=== PATIENT | female | born 1965 | race Caucasian/White ===

== ENCOUNTER 2023-06-27 07:11 | Observation (INO) ==
--- NOTE | 2023-06-02 10:48 | PAT Medication Instructions ---
Medication Instructions Date of Service June 02, 2023 Home Medications Medication Instructions Recorded famotidine 40 mg tablet (Pepcid) 40 mg PO BID #60 tabs 06/06/22 tirzepatide 15 mg/0.5 mL 15 mg (0.5 mL) subcut Q7D #2 mL 05/30/23 subcutaneous pen injector (Mounjaro) albuterol sulfate 90 mcg/actuation aerosol inhaler (Ventolin HFA) 2 puff inhalation QID PRN Shortness Of Breath azelaic acid 15 % topical gel 1 applic topical HS PRN Rash cholecalciferol (vitamin D3) 125 mcg (5,000 unit) tablet (Vitamin D3) 5,000 unit PO BID citalopram 40 mg tablet 40 mg PO HS doxycycline hyclate 20 mg tablet 20 mg PO BID hydrochlorothiazide 25 mg tablet 25 mg PO QAM levothyroxine 50 mcg tablet 50 mcg PO QAM lisinopril 10 mg tablet 10 mg PO QAM prednisone 10 mg tablets in a dose pack 10 mg PO UD PRN copd rescue kit polyethylene glycol 3350 17 gram/dose oral powder (Miralax) 17 g PO DAILY PRN Constipation psyllium 1 packet PO DAILY PRN Constipation famotidine 40 mg tablet (Pepcid) 40 mg PO BID montelukast 10 mg tablet 10 mg PO HS tirzepatide 15 mg/0.5 mL subcutaneous pen injector (Mounjaro) 15 mg (0.5 mL) subcut Q7D Continue as directed doxycycline hyclate 20 mg tablet 20 mg PO BID prednisone 10 mg tablets in a dose pack 10 mg PO UD PRN copd rescue kit (if needed) STOP taking 7 days before surgery tirzepatide 15 mg/0.5 mL subcutaneous pen injector (Mounjaro) 15 mg (0.5 mL) subcut Q7D STOP taking 24 hours before surgery azelaic acid 15 % topical gel 1 applic topical HS PRN Rash DO NOT take the morning of surgery cholecalciferol (vitamin D3) 125 mcg (5,000 unit) tablet (Vitamin D3) 5,000 unit PO BID hydrochlorothiazide 25 mg tablet 25 mg PO QAM lisinopril 10 mg tablet 10 mg PO QAM polyethylene glycol 3350 17 gram/dose oral powder (Miralax) 17 g PO DAILY PRN Constipation psyllium 1 packet PO DAILY PRN Constipation Take morning of surgery With a small sip of water, OTHERWISE NOTHING TO EAT OR DRINK AFTER MIDNIGHT: albuterol sulfate 90 mcg/actuation aerosol inhaler (Ventolin HFA) 2 puff inhalation QID PRN Shortness Of Breath (use if needed; please bring with you to hospital day of surgery if possible) levothyroxine 50 mcg tablet 50 mcg PO QAM famotidine 40 mg tablet (Pepcid) 40 mg PO BID Take evening before surgery albuterol sulfate 90 mcg/actuation aerosol inhaler (Ventolin HFA) 2 puff inhalation QID PRN Shortness Of Breath (if needed) cholecalciferol (vitamin D3) 125 mcg (5,000 unit) tablet (Vitamin D3) 5,000 unit PO BID citalopram 40 mg tablet 40 mg PO HS polyethylene glycol 3350 17 gram/dose oral powder (Miralax) 17 g PO DAILY PRN Constipation (if needed) psyllium 1 packet PO DAILY PRN Constipation (if needed) famotidine 40 mg tablet (Pepcid) 40 mg PO BID montelukast 10 mg tablet 10 mg PO HS Other Notes If you have any questions please call us at [phone] or [phone] or [phone] or [phone]
--- NOTE | 2023-06-03 15:47 | Anesthesiology Consultation ---
Date of Service June 03, 2023 Assessment & Plan (1) Encounter for pre-operative examination: Plan - check BSG am DOS. - PONV: patient has received scopolamine patch in past; to final discussion with anesthesiologist am DOS. Patient expressed comfort/agreement with this plan, de nied additional questions or concerns. - Mounjaro instructions: Patient takes on (). Patient informed at PAT visit to stop 7 days prior to surgery- voiced understanding. Instructed last dose will be: (06/19/23). Patient advised to check with prescriber to see if alternative diabetic management changes recommended while holding Mounjaro and on prescriber's recommendations for resuming medication. She was advised if alternative management changes are advised, patient to call back to PAT to update chart and discuss if any further preop medication instructions needed. She verbalized understanding and agreement, denied questions or concerns. - Outpatient joint assessment: Patient is currently scheduled for inpatient pathway. If re-evaluated and patient/surgeon requests outpatient pathway, patient is acceptable candidate for outpatient joint program from anesthesia standpoint pending surgeon's office assessment of pt motivation/support/completion of same day joint program preop requirements. Chart Review Chart Review: Acceptable Risk for Surgery and Patient seen in Pre Admission Testing Teaching & Discussion Pre-Anesthesia Teaching/Discussion Notes: Instructed NPO after midnight before surgery, except medications with 15 cc of water. Medication instructions provided according to the PAT guidelines. History Surgery Operation Date: 06/27/23 08:50 Proposed Procedures p Left Total Knee Arthroplasty - Kirit Arteaga MD Height/Weight Height: 5 ft 6 in Weight: 115.5 kg Allergies Allergy/AdvReac Type Severity Reaction Status Date / Time tetanus toxoid, adsorbed Allergy Severe MEMORY Verified 05/29/23 16:34 LOSS/"BLACKED OUT" metformin Allergy Intermediate diaphoresis Verified 05/29/23 16:34 and muscle cramps tramadol Allergy Intermediate VOMITING Verified 05/29/23 16:34 AND ITCHING Medications Home Medications Medication Instructions Recorded Confirmed Last Taken albuterol sulfate 90 mcg/actuation 2 puff inhalation QID PRN 11/01/19 05/29/23 Unknown aerosol inhaler (Ventolin HFA) Shortness Of Breath azelaic acid 15 % topical gel 1 applic topical HS PRN Rash 11/01/19 05/29/23 Unknown cholecalciferol (vitamin D3) 125 5,000 unit PO BID 11/01/19 05/29/23 11/08/19 mcg (5,000 unit) tablet (Vitamin D3) citalopram 40 mg tablet 40 mg PO HS 11/01/19 05/29/23 11/08/19 doxycycline hyclate 20 mg tablet 20 mg PO BID 11/01/19 05/29/23 11/08/19 hydrochlorothiazide 25 mg tablet 25 mg PO QAM 11/01/19 05/29/23 11/01/19 levothyroxine 50 mcg tablet 50 mcg PO QAM 11/01/19 05/29/23 11/08/19 lisinopril 10 mg tablet 10 mg PO QAM 11/01/19 05/29/23 11/09/19 06:30 prednisone 10 mg tablets in a dose 10 mg PO UD PRN copd rescue kit 11/01/19 05/29/23 Unknown pack blood sugar diagnostic (OneTouch 11/07/21 03/03/23 Unknown Verio test strips) lancets (AltraTechTouch UltraSoft 11/07/21 03/03/23 Unknown Lancets) polyethylene glycol 3350 17 17 g PO DAILY PRN Constipation 11/07/21 05/29/23 Unknown gram/dose oral powder (Miralax) psyllium 1 packet PO DAILY PRN Constipation 11/07/21 05/29/23 Unknown famotidine 40 mg tablet (Pepcid) 40 mg PO BID #60 tabs 06/06/22 05/29/23 Unknown montelukast 10 mg tablet 10 mg PO HS 06/06/22 05/29/23 Unknown tirzepatide 15 mg/0.5 mL 15 mg (0.5 mL) subcut Q7D #2 mL 05/30/23 Unknown subcutaneous pen injector (Dannieunambika) Past Medical History Medical History (Updated 06/03/23 @ 15:51 by Juanita Olea PA-C) Anxiety Chronic obstructive pulmonary disease inhaler prn; controlled and stable per pt, last rescue inhaler use several months ago Colon polyp, hyperplastic Degenerative disc disease Depression DM type 2 (diabetes mellitus, type 2) NIDDM Fatty infiltration of liver severe on CT dated 10/12/2020 GERD (gastroesophageal reflux disease) controlled, stable per pt Hypertension controlled, stable per pt Hypothyroidism Morbid obesity with BMI of 50.0-59.9, adult Rosacea Sleep apnea cpap-compliant Patient denies h/o stroke, seizures, heart attack, heart failure, blood clots/DVTs or blood transfusions. Exercise / Class Metabolic Activity II 4-5 Yardwork/Stairs/Walk up hill (denies chest discomfort or shortness of breath with 1 FOS) Past Family History Family History Mother Diabetes Hypertension Heart disorder Eye problems Obesity Father Arthritis Hypertension Cirrhosis Brother Myocardial infarction Hypertension Obesity Grandmother (Paternal) Arthritis Breast cancer Grandmother (Maternal) Stroke Other No family history of adverse response to anesthesia Past Surgical History Surgical History History of appendectomy History of arthroscopy of left knee History of arthroscopy of right knee History of bladder suspension procedure History of colonoscopy with polypectomy History of dilatation and curettage History of surgical removal of ganglion cyst left wrist History of tooth extraction History of total right knee replacement (TKR) History of wisdom tooth extraction Past Anesthesia History No Hx of Anesthesia Complications and No Family Hx of Anesthesia Complications History of PONV No Hx of Motion Sickness and History of PONV (has received scop patch in past; denies h/o adverse effects from patch) Social History Smoking Status: Former smoker Do You Dip or Chew Tobacco: No Smoking End Date: 2014 Hx Alcohol Use: Yes Alcohol type: wine and hard liquor alcohol intake frequency: holidays/special occasions only Hx Substance Use: No substance use type: does not use Review of Systems Patient denies chest pain, shortness of breath, dyspnea on exertion, fever, chills, cough, wheezing, or palpitations. Physical Exam Vital Signs Vitals BP 118/68 P 86 TEMP 97.6 SP02 98% on RA RESP 18 Physical Patient resting comfortably in chair in no acute distress, alert and oriented, responding appropriately throughout visit Full cervical extension range of motion without pain TMD3. finger breadths Mallampati Score 2 Dentition: broken left upper back tooth, denies chipped or loose teeth, caps/crowns, implants or bridges Lungs: normal respiratory effort. Good air movement, clear throughout to auscultation, no adventitious breath sounds Cardiac: regular rate and rhythm, no murmurs noted Carotid arteries: negative bruit bilat Lab Results Anesthesia Preop Results Results Anesthesia Widget: WBC 5.51 K/ul (4.8-10.8) 06/03/23 Hgb 14.0 g/dl (12.0-16.0) 06/03/23 Hct 40.5 % (37.0-47.0) 06/03/23 Plt 141 K/uL (130-400) 06/03/23 Na 138 mmol/L (136-145) 06/03/23 K 3.7 mmol/L (3.5-5.1) 06/03/23 Cl 101 mmol/L (98-107) 06/03/23 CO2 32 mmol/L (21-32) 06/03/23 BUN 13 mg/dl (6-23) 06/03/23 Creat 0.84 mg/dl (0.6-1.2) 06/03/23 Glucose Level 97 mg/dl (70-99(Fasting)) 06/03/23 PT 11.4 Seconds (9.0-12.0) 06/03/23 PTT 28.8 Seconds (21.0-31.0) 06/03/23 INR 1.0 (0.9-1.1) 06/03/23 HA1c 5.1 % (4.5-5.6) 06/03/23 Blood Type B Positive 06/03/23 Antibody Screen NEGATIVE 06/03/23 Testing Electrocardiogram Date: 06/28/22 NSR, rate 70 bpm Chest X-Ray Date: 06/28/22 No acute cardiopulmonary findings.
--- NOTE | 2023-06-20 13:57 | History & Physical Report ---
Date of Service June 20, 2023 Assessment & Plan (1) Left knee DJD: 58-year-old female status post right knee replacement with a left knee tricompartment DJD. She has failed conservative measures. She like to have her knee fixed. Unfortunately her right knee is not doing great. Plan we discussed treatment. Proceed with knee knee replacement surgery. The risks Mente this procedure plan the patient clued but not limited to DVT PE infection neurological injury vascular bleeding palm pain limb range of motion this is fairly with symptoms incomplete relief of symptoms etc. Patient understands and desires to proceed. Informed consent is obtained. I did tell her I cannot guarantee her that she will do better than her other knee but hopefully so. That she certainly arthritis enough to warrant the surgery. As far as discharge plan she is can be discharged home. Her can assist in her care. She is a registered nurse as well. (2) Painful total knee replacement, right: History of Present Illness Chief Complaint: . Left knee pain and discomfort. Primary Care Provider: KIMBERLEY Valerio . Patient is a 58-year-old female referred by Dr. Apoadca for surgical treatment of her left knee. She got a long history of knee problems and had a right knee replacement by Dr. Troncoso in 2016. Never felt quite right. She continues to be bothered by the left knee pain discomfort. She does have a history of knee arthroscopy in 2014 on this knee. The past several years she has increased pain discomfort in her knee. She been through extensive conservative treatment which has become less helpful. She describes global pain. The more she is up and out the more it hurts. She like to have her knee fixed. Allergies Allergy/AdvReac Type Severity Reaction Status Date / Time tetanus toxoid, adsorbed Allergy Severe MEMORY Verified 05/29/23 16:34 LOSS/"BLACKED OUT" metformin Allergy Intermediate diaphoresis Verified 05/29/23 16:34 and muscle cramps tramadol Allergy Intermediate VOMITING Verified 05/29/23 16:34 AND ITCHING Home Medications Medication Instructions Recorded Confirmed Type albuterol sulfate 90 mcg/actuation 2 puff inhalation QID PRN 11/01/19 05/29/23 History aerosol inhaler (Ventolin HFA) Shortness Of Breath azelaic acid 15 % topical gel 1 applic topical HS PRN Rash 11/01/19 05/29/23 History cholecalciferol (vitamin D3) 125 5,000 unit PO BID 11/01/19 05/29/23 History mcg (5,000 unit) tablet (Vitamin D3) citalopram 40 mg tablet 40 mg PO HS 11/01/19 05/29/23 History doxycycline hyclate 20 mg tablet 20 mg PO BID 11/01/19 05/29/23 History hydrochlorothiazide 25 mg tablet 25 mg PO QAM 11/01/19 05/29/23 History levothyroxine 50 mcg tablet 50 mcg PO QAM 11/01/19 05/29/23 History lisinopril 10 mg tablet 10 mg PO QAM 11/01/19 05/29/23 History prednisone 10 mg tablets in a dose 10 mg PO UD PRN copd rescue kit 11/01/19 05/29/23 History pack blood sugar diagnostic (OneTouch 11/07/21 03/03/23 History Verio test strips) lancets ([employer] UltraSoft 11/07/21 03/03/23 History Lancets) polyethylene glycol 3350 17 17 g PO DAILY PRN Constipation 11/07/21 05/29/23 History gram/dose oral powder (Miralax) psyllium 1 packet PO DAILY PRN Constipation 11/07/21 05/29/23 History famotidine 40 mg tablet (Pepcid) 40 mg PO BID #60 tabs 06/06/22 05/29/23 Rx montelukast 10 mg tablet 10 mg PO HS 06/06/22 05/29/23 History tirzepatide 15 mg/0.5 mL 15 mg (0.5 mL) subcut Q7D #2 mL 05/30/23 Rx subcutaneous pen injector (Mounjaro) Past Med/Surg History Medical History Anxiety Chronic obstructive pulmonary disease inhaler prn; controlled and stable per pt, last rescue inhaler use several months ago Colon polyp, hyperplastic Degenerative disc disease Depression DM type 2 (diabetes mellitus, type 2) NIDDM Fatty infiltration of liver severe on CT dated 10/12/2020 GERD (gastroesophageal reflux disease) controlled, stable per pt Hypertension controlled, stable per pt Hypothyroidism Morbid obesity with BMI of 50.0-59.9, adult Rosacea Sleep apnea cpap-compliant Surgical History History of appendectomy History of arthroscopy of left knee History of arthroscopy of right knee History of bladder suspension procedure History of colonoscopy with polypectomy History of dilatation and curettage History of surgical removal of ganglion cyst left wrist History of tooth extraction History of total right knee replacement (TKR) History of wisdom tooth extraction Family History Mother Diabetes Hypertension Heart disorder Eye problems Obesity Father Arthritis Hypertension Cirrhosis Brother Myocardial infarction Hypertension Obesity Grandmother (Paternal) Arthritis Breast cancer Grandmother (Maternal) Stroke Other No family history of adverse response to anesthesia Social History Smoking Status: Former smoker packs per day: 1; Second Hand Exposure: No; Do You Dip or Chew Tobacco: No; Hx Alcohol Use: Yes Alcohol type: wine and hard liquor Alcohol Intake Frequency: Monthly or Less Hx Substance Use: No Preferred Language: Vietnamese Communication Ability: Effective Visual Impairment: Limited Hearing Ability: Normal Loom Technician Required: No Beliefs That Will Affect Care: None marital status: Current Living Situation: Spouse current occupational status: employed How many Children do You have: 0 Feels Safe at Home: Yes Childhood Exposure to Second-Hand Smoke: No Diet: regular caffeine: Yes during the past year weight has: decreased > 10 lbs Dental Care, Regularly: No Physical Activity Frequency: 5-6 Times per Week Seatbelt Use: always Sunscreen Use: Yes Assistive Devices: CPAP Review of Systems All systems reviewed & are unremarkable except as noted in HPI & below. Physical Exam . Physical examination reveals a pleasant middle-age female but looks in pretty good health. Examination of the left knee reveals a moderate soft tissue envelope is got varus alignment to her knee. She got about 10 degree flexion contracture and bends about him 5 degrees. No pain with hip motion. Examination of the right knee reveals a well-healed incision. No swelling. Range of motion 0-1 20. Neck trachea midline, no thyromegaly Respiratory normal respiratory effort, lungs clear to auscultation Cardiovascular RRR, no murmur, no edema Gastrointestinal (Abdomen) normal bowel sounds, soft, nontender, no hepatosplenomegaly Results & Data Results & Data Laboratory Results . Diagnostic Findings . X-rays of the left knee were reviewed. Shows advanced left knee tricompartment DJD. She got complete loss of medial joint space. Got osteophytes in all 3 compartments. A little bit of tibiofemoral subluxation. PG Care Time/CCT Total # of Minutes Spent Total Time Spent with Patient: Total time spent is greater than 50% in coordination of care (as documented) at patient's floor/unit and/or counseling patient: Coding Level of Care Code None Diagnoses Left knee DJD M17.12 Painful total knee replacement, right T84.84XA; Z96.651
[~2023-06-27 07:11] MED LIST: ACETAMINOPHEN 500 MG TAB PO SCH; BUPIVACAINE 0.5 % 5 MG/1 ML PF 10ML VIAL ONE; BUPIVACAINE LIPOSOME/PF 266 MG, BUPIVACAINE/EPINEPHRINE 50 ML, SODIUM CHLORIDE 0.9% PF ... INFIL SCH; CeleBREX 200 MG CAP PO SCH; EPINEPHrine INJ 1 MG/ML AMP ONE; FAMOTIDINE 20 MG TAB PO SCH; LR 60ML/HR IV SCH; METOCLOPRAMIDE HCL 10 MG TABLET PO SCH; ROPIVACAINE 0.5% 5 MG/ML 30 ML VIAL ONE; Scopolamine 1 MG TDSY TD SCH; TRANEXAMIC ACID 1,000 MG **IV Intra-op IV SCH; ceFAZolin 2000MG 2,000 MG/15 ML SYR IV SCH; dexAMETHasone**PF** 10 MG/ML VIAL IV SCH
[2023-06-27] MEDS ORDERED: PROPOFOL IV EMULSION 10 MG/ML 20 ML VIAL IV ONE ×3 (07:30→10:18)
[2023-06-27] MEDS ORDERED: ONDANSETRON INJ 2 MG/ML 2 ML VIAL ONE (07:30)
[2023-06-27] MEDS ORDERED: MIDAZOLAM HCL 1 MG/ML 2ML VIAL ONE ×2 (07:30→09:50)
[2023-06-27] MEDS ORDERED: LIDOCAINE 2% 2 ML VIAL/AMP(20MG/ML) INFIL ONE (07:30)
[2023-06-27] MEDS ORDERED: BUPIVACAINE LIPOSOME 1.3% 266 MG/20 ML VIAL ONE (08:40)
[2023-06-27] MEDS ORDERED: BUPIVACAINE/EPINEPHRINE 0.25% 1:200,000 30 ML VIAL ONE (08:40)
[2023-06-27] MEDS ORDERED: SODIUM CHLORIDE 0.9% PF 50 ML VIAL ONE (08:40)
--- NOTE | 2023-06-27 08:42 | History & Physical Bridge Note ---
Date of Service June 27, 2023 History & Physical Bridge Note I have examined the patient, reviewed the History & Physical and in the interval since the performance of the History & Physical I have noted the following changes of clinical significance: no changes noted
[2023-06-27] MEDS ORDERED: ePHEDrine sulfate 50 MG/ML AMP IV PRN (10:00)
[2023-06-27] MEDS ORDERED: ATROPINE SULFATE 0.1 MG/ML 10ML SYR IV PRN (10:00)
[2023-06-27] MEDS ORDERED: ceFAZolin 330 MG/ML 1 GM VIAL IM ONE (10:06)
[2023-06-27] MEDS ORDERED: ceFAZolin 1000MG 1,000 MG/7.5 ML SYR IV ONE (10:11)
--- NOTE | 2023-06-27 10:55 | Operative Report ---
PG Post Operative Report Pre & Post Diagnosis Operation Date: 06/27/23 08:50 Pre-Op Diagnosis: Left Knee Advanced Degenerative Joint Disease Post-Op Diagnosis: Left Knee Advanced Degenerative Joint Disease I identified the patient and participated in the time-out.: Yes Procedure Operation Date: 06/27/23 08:50 Actual Procedures p Left Total Knee Arthroplasty(Left) - Kirit Arteaga MD Surgeon Kirit Arteaga MD Disposition Clerk Blaine King PA-C Estimated Blood Loss 50 Findings Consistent with Post-Op Diagnosis Operative findings were advanced left knee tricompartment DJD. She had pretty extensive grade 4 [id number] disease in all 3 compartments most severe in the medial side. She had varus deformity to her knee and about a 10 to 15 degree flexion contracture. Osteophytes in all 3 compartments. Specimens Left knee sent for pathology Anesthesia Type Spinal MAC Complications none Disposition Accompanied Patient To Recovery: No Indications Patient is a 58-year-old female who said a long history of bilateral hip pain and discomfort in her knees. Describes gotten worse over the years patient been through extensive conservative treatment. She had a right knee replaced in the past elsewhere and is done pretty well from this. She continues to bother by left knee pain discomfort. X-rays show advanced knee arthritis. She like to proceed with the replacement. Of note, she does have a history of a knee scope done on this side in 2013. Description of Procedure Operative implants consist of: 1 Biomet Vanguard size 67.5 left posterior stabilized femoral component. 2. Biomet size 71 tibial tray. 3. 10 mm pro stabilized polyethylene insert. 4. 31 x 8 all poly patella. The patient was taken to the operating, identified, and placed on the operating table supine position architectures were properly padded. IV antibiotics tried by anesthesia team. A spinal anesthetic and abductor canal block had provided holding area. Silveira catheter was placed in sterile fashion and left factor was then placed in the left lower extremity then prepped draped in usual sterile fashion. The left leg was elevated exsanguinated with use of an Esmarch in terms playset 3 mmHg. An anterior posterior left knee was then performed to longitudinal incision centered over the patella. Sharp dissection Through subcutaneous tissue down the extensor mechanism. A medial prepped arthrotomy incision is made. Some subperiosteal dissection was carried out medially. The fat pad was dissected from Neath patella tendon. Lateral patellofemoral ligament was relea sed. Patella subluxated laterally and the knee was flexed with the osteophytes taken off distal femur. The ACL PCL were then released and the distal femur the tibia subluxated anteriorly. External treatment LYMErix then placed in the anterior face of the tibia and adjusted 14 mm medially. Proximal tibial cut was made essentially flush with the most deficient aspect of the posterior medial tibial plateau. Some large osteophytes were taken off medial and posterior medially. The tibia sized to a size 71. Attention drawn the femur. The distal femur examined the sharp drop with intramedullary canal was suction. A left 5 degree valgus cutting guide was placed. This femoral cutting block was pinned in place. This femoral cut was made to take an additional 3 mm of bone off distal femur. The femur was then sized to a size 67.5. The AP cutting block was pinned parallel to the epicondylar axis which was 5 degrees of external rotation. Anterior cut, anterior chamfer, posterior cut, posterior chamfer cuts were made. The box cutting guide was placed in the just slight lateral box cut was made. The knee was flexed with the remnants of the medial and lateral menisci were excised. The osteophytes taken off the posterior aspect of femur. A trial femoral port was placed for the tibial tray was pinned in maximum external rotation and the drill and stem punch used to create defect in proximal tibia for the tibial tray. Knee was then trialed and the 10 mm insert fit most appropriately. Attention drawn the patella. The patella is cleaned of all soft tissues. Patella thickness measured 22 mm in thickness was cut down to 14. Was sized to a size 31 patella. The lug holes were drilled for 31 patella. The lateral osteophytes removed. Patella button was placed. Knee was taken through range of motion and the patella tracked nicely with no thumbs test. Attention drawn to placing permanent components. Nupathe all trial components were removed. Bone plug was placed in the distal femur limit blood loss. Double batch Palacos G cement was mixed. BiomSimulated Surgical Systemsguard size 67.5 left Po stabilized femoral component, size 71 tibial tray, a 10 mm pro stabilized polyethylene insert, and a 31 x 8 all poly patella then cemented in place. The knee was brought out into full extension till cement hardened. Final cement check was then performed. Pericapsular tissues were injected with total 100 cc of combination of 20 of Exparel, 30 cc normal saline, 50 cc of quarter percent Marcaine with epinephrine. Patient did receive 1 g tranexamic acid. The chart was then let down for final tourniquet time of 54 minutes for hemostasis surgeries electrocautery. Extensor mechanism closed with combination 1 PDS suture #1 Vicryl suture in a [id number] fashion. Extensor mechanism checked by me intact the subcutaneous tissue then closed with 2 Dexon suture in buried interrupted fashion skin was closed skin jamaica. Leg was then cleaned and dried and sterile dressing with Xeroform, 4 fours, sterile cast padding, Adan bandage were applied. Patient then transferred to the recovery in stable condition. Patient tolerated procedure well and there are no complications. Blaine King, my physician technical staff assistant, was present for the entire procedure. His assistance was essential and required for appropriate patient positioning, prepping and draping, surgical exposure, performing the technical details of the operation, placement the implants, closure of the wound, and placement of the sterile bandage. I attest to the content of the Intraoperative Record and any orders documented therein. Any exceptions are noted below.
--- NOTE | 2023-06-27 11:24 | Anesthesiology Progress Note ---
Date of Service June 27, 2023 Anesthesia Post Procedure Vital Signs Vital Signs: Temp Pulse Pulse Resp BP Pulse Ox O2 Del Method 06/27/23 11:15 36.3 C L 73 19 139/92 98 Room Air 06/27/23 11:05 75 17 147/77 H 93 Room Air 06/27/23 10:55 74 17 122/70 97 Room Air 06/27/23 10:49 36 C L 87 12 121/74 95 Oxymask 06/27/23 07:49 36.5 C 61 20 141/78 H 97 Room Air O2 Flow Rate 06/27/23 11:15 06/27/23 11:05 06/27/23 10:55 06/27/23 10:49 6 06/27/23 07:49 Pain Intensity Left Knee: Pain Intensity: 10 Transfer of Care Handoff Completed per policy Notes Mental Status: alert / awake / arousable Patient Amnestic to Procedure: Yes Nausea / Vomiting: adequately controlled Pain: adequately controlled Airway Patency, RR, SpO2: stable & adequate BP & HR: stable & adequate Hydration State: stable & adequate Neuraxial Anesthesia: was administered and sensory block is resolving Anesthetic Complications: no major complications apparent
[2023-06-27] MEDS ORDERED: MAGNESIUM HYDROXIDE SUSP 30 ML UDC PO PRN (12:32)
[2023-06-27] MEDS ORDERED: ALBUTEROL HFA 8 GM INHALER INH PRN (12:32)
[2023-06-27] MEDS ORDERED: CARBOHYDRATES FOR HYPOGLYCEMIA PO PRN (12:32)
[2023-06-27] MEDS ORDERED: GLUCAGON FOR INJ 1 MG VIAL SQ PRN (12:32)
[2023-06-27] MEDS ORDERED: POLYETHYLENE (MIRALAX) 17 GM PACK PO PRN ×2 (12:32)
[2023-06-27] MEDS ORDERED: PHARMACY GLYCEMIC MGMT CONSULT PRN (12:32)
[2023-06-27] MEDS ORDERED: TIRZEPATIDE 15 MG/0.5 ML SQ SCH (12:32)
[2023-06-27] MEDS ORDERED: DEXTROSE 50% 50 ML SYRINGE IV PRN (12:32)
[2023-06-27] MEDS ORDERED: GLUCOSE 40% GEL 15 GM TUBE PO PRN (12:32)
[2023-06-27] MEDS ORDERED: ONDANSETRON INJ 2 MG/ML 2 ML VIAL IV PRN (12:32)
[2023-06-27] MEDS ORDERED: NALOXONE HCL 0.4 MG/1 ML VIAL/CARP IV PRN (12:32)
[2023-06-27] MEDS ORDERED: HYDROmorphone INJ 0.5 MG/0.5 ML SYR IV PRN (12:32)
[2023-06-27] MEDS ORDERED: METOCLOPRAMIDE HCL INJ 5 MG/ML 2 ML VIAL IV PRN (12:32)
[2023-06-27] MEDS ORDERED: SODIUM CHLORIDE 0.9% 1,000 ML IV SCH (12:32)
[2023-06-27] MEDS ORDERED: ALUMINUM/MAGNESIUM SUSP 30 ML UDC PO PRN (12:32)
[2023-06-27] MEDS ORDERED: diphenhydrAMINE Capsule 25 MG CAP PO PRN (12:32)
[2023-06-27] MEDS ORDERED: bisacodyL 10 MG SUPP PR PRN (12:32)
[2023-06-27] MEDS ORDERED: PREDNISONE 10 MG PO PRN (12:32)
[2023-06-27] MEDS ORDERED: GLUCOSE 10 TAB/TUBE PO PRN (12:32)
[2023-06-27] MEDS ORDERED: INFLUENZA VIRUS QUADRIVALENT VACCINE (IIV4) 0.5 ML SYR IM ONE (12:58)
--- NOTE | 2023-06-27 13:54 | Pharmacy Report ---
Pharmacy Glycemic Short Note 2 - Date of Service June 27, 2023 - Glycemic Short BSG Results (Last 24 hours): 06/27/23 06/27/23 06/27/23 07:28 10:52 12:26 POC Glucose 92 122 H 127 H OUTPATIENT ANTIDIABETIC REGIMEN: * Mounjaro 15mg Q7D (last dose 06/19 per med rec) * HbA1c 5.1% (06/03/23) * HbA1c 9.5 (01/26/21)-- per bariatric visit notes 02/21/23 ASSESSMENT: * Cecelia is a 58 YOM admitted status post left total knee arthroplasty with a history of T2DM. Pharmacy has been consulted for glycemic management while inpatient. * Fasting BSG below goal this AM, 10mg of IV dexamethasone given preop, will hold off on covering steroids with basal insulin due to excellent HbA1c * Pre/Post operative BSGs within goal range. Initiated Novolog at a weight based stress of 3 (based off of AdjBW) * Dexamethasone 8mg IV x1 ordered for tomorrow, may need additional basal based on steroid response PLAN FOR INPATIENT GLYCEMIC CONTROL: * Hold outpatient oral diabetes medications * Basal insulin * Reassess need for basal insulin in AM * Bolus insulin * NovoLog per scale ACHS or Q6hrs while NPO * Goal Range: Low 110 mg/dL - High 140 mg/dL * Correction Factor: 20 mg/dL/unit * Nutritional / Prandial insulin per carb ratio of 1 unit per 6 grams CHO consumed
[2023-06-27] MEDS: KETOROLAC 30 MG/ML VIAL IV SCH ×2 (15:12→21:06)
[2023-06-27] MEDS: INSULIN ASPART PER UNIT CHARGE SC SCH ×3 (15:16→21:04)
[2023-06-27] MEDS ORDERED: TRANEXAMIC ACID / 0.7% NACL 1,000 MG/100 ML BAG IV SCH (16:45)
[2023-06-27] MEDS: ASCORBIC ACID 500 MG TAB PO SCH (17:05)
[2023-06-27] MEDS: ACETAMINOPHEN 500 MG TAB PO SCH ×2 (17:05→21:10)
[2023-06-27] MEDS: Scopolamine CHECK PATCH PLACEMENT SCH (17:07)
[2023-06-27] MEDS: ceFAZolin 2000MG 2,000 MG/15 ML SYR IV SCH (17:36)
--- NOTE | 2023-06-27 17:54 | XRay Report ---
XR knee LT 1 or 2V routine CLINICAL HISTORY: Surgical Post Op TECHNIQUE: 2 views of the right knee were obtained. Comparison: Comparison is made to knee radiographs 04/07/2020 FINDINGS: Patient is status post total knee arthroplasty with expected postsurgical changes including soft tiss ue swelling and subcutaneous emphysema. No periarticular lucency or hardware fracture is seen. IMPRESSION: Expected postoperative appearance status post placement of total knee arthroplasty. ACT 112: Negative or not required by law. Electronically signed by: Arvind Mack M.D. 06/27/2023 5:53 PM
[2023-06-27] MEDS: oxyCODONE HCL IR 5 MG TAB (IMMEDIATE RELEASE) PO PRN (18:00)
[2023-06-27] MEDS ORDERED: CITALOPRAM 40 MG TAB PO SCH (21:00)
[2023-06-27] MEDS ORDERED: SENNA 8.6 MG TAB PO SCH ×2 (21:00)
[2023-06-27] MEDS ORDERED: MONTELUKAST SODIUM 10 MG TABLET PO SCH (21:00)
[2023-06-27] MEDS: ASPIRIN 81 MG ECTAB PO SCH (21:07)
[2023-06-27] MEDS: CHOLECALCIFEROL 5,000 UNITS 125 MCG TAB PO SCH (21:08)
[2023-06-27] MEDS: DOCUSATE SODIUM 100 MG CAP PO SCH (21:08)
[2023-06-27] MEDS: FAMOTIDINE 40 MG TABLET PO SCH (21:09)
[2023-06-28] MEDS: INSULIN ASPART PER UNIT CHARGE SC SCH ×3 (00:08→08:15)
[2023-06-28] MEDS: KETOROLAC 30 MG/ML VIAL IV SCH ×2 (01:09→08:08)
[2023-06-28] MEDS: ceFAZolin 2000MG 2,000 MG/15 ML SYR IV SCH (01:09)
[2023-06-28] MEDS: Scopolamine CHECK PATCH PLACEMENT SCH ×2 (01:09→08:05)
[2023-06-28 06:01] LABS: Hematocrit (blood only) 33.1 % (37.0-47.0); Hemoglobin 11.2 g/dl (12.0-16.0); Mean Corpuscular Hgb Conc 33.8 g/dL (32.0-36.0); Mean Corpuscular Volume 88.7 fL (80.0-100.0); Platelet Count 129 K/uL (130-400); RDW Coefficient of Variation 12.3 % (11.5-14.5); RDW Standard Deviation 39.8 fL (36.4-46.3); Red Blood Count 3.73 M/uL (4.20-5.40); White Blood Count 13.45 K/ul (4.8-10.8)
[2023-06-28] MEDS: ACETAMINOPHEN 500 MG TAB PO SCH (06:30)
[2023-06-28] MEDS ORDERED: LEVOTHYROXINE SODIUM 50 MCG TABLET PO SCH (06:30)
[2023-06-28 06:32] LABS: BUN Creatinine Ratio 15.9 (10-20); Calcium 9.2 mg/dl (8.6-10.3); Est GFR (African American) 109.7 ml/min; Est GFR (Non-African American) 94.6 ml/min; Potassium 3.8 mmol/L (3.5-5.1)
--- NOTE | 2023-06-28 07:22 | Surgery Progress Note ---
Date of Service June 28, 2023 Assessment & Plan (1) Status post left knee replacement: Plan: 58-year-old female postop day 1 from left knee replacement doing pretty well. Pain is controlled. She is neurologically intact. Plan: 1. DVT prophylaxis including thigh-high teds, SCDs, aspirin twice a day. 2. PT OT. Weight-bear as tolerated left total knee protocol. 3. Pain control doing okay with current pain regimen. 4. Disposition plan is to discharge to home. She is could do a good outpatient therapy. Admission and Anticipated Discharge Date Admission Date: June 27, 2023 Subjective 58-year-old female postop day 1 from a left knee replacement. She is doing pretty well. Had a reasonable night. No chest pain or shortness of breath. Pain is controlled. Physical Exam Physical Exam: Physical exam shows a pleasant middle-age female. She is sitting up in bed looks quite comfortable this morning. Examination left leg reveals dressing clean dry and intact patient dorsiflex and plantarflex her foot appropriately. She can do a straight leg raise with some effort. Respiratory: normal respiratory effort, lungs clear to auscultation Cardiovascular: RRR, no murmur, no edema Gastrointestinal (Abdomen): normal bowel sounds, soft, nontender, no hepatosplenomegaly Results & Data Vital Signs (Past 12 Hours) Vital Signs Temp Pulse Resp BP Pulse Ox O2 Del Method 06/28/23 07:08 36.5 C 76 16 106/70 97 Room Air 06/28/23 04:00 36.4 C L 69 16 104/69 96 Room Air 06/27/23 23:59 36.7 C 62 16 117/63 95 Room Air 06/27/23 20:30 36.5 C 66 16 118/77 96 Room Air Laboratory Results Hemoglobin is 11.2. Hematocrit is 33.1. Electrolytes are stable. PG Care Time/CCT Total # of Minutes Spent Total Time Spent with Patient: Total time spent is greater than 50% in coordination of care (as documented) at patient's floor/unit and/or counseling patient: Coding Level of Care Code 37137 Post Operative Follow-Up Diagnoses Status post left knee replacement Z96.652
[2023-06-28] MEDS ORDERED: dexAMETHasone 10 MG in SYRINGE 0 ML IV SCH (08:00)
[2023-06-28] MEDS: oxyCODONE HCL IR 5 MG TAB (IMMEDIATE RELEASE) PO PRN (08:04)
[2023-06-28] MEDS: CHOLECALCIFEROL 5,000 UNITS 125 MCG TAB PO SCH (08:05)
[2023-06-28] MEDS: FAMOTIDINE 40 MG TABLET PO SCH (08:05)
[2023-06-28] MEDS: DOCUSATE SODIUM 100 MG CAP PO SCH (08:05)
[2023-06-28] MEDS: ASPIRIN 81 MG ECTAB PO SCH (08:05)
[2023-06-28] MEDS: ASCORBIC ACID 500 MG TAB PO SCH (08:05)
[2023-06-28] MEDS ORDERED: hydroCHLOROthiazide 25 MG TAB PO SCH (09:00)
[2023-06-28] MEDS ORDERED: lisinopril 10 MG TAB PO SCH (09:00)
[2023-06-28] MEDS ORDERED: MULTIVITAMIN TAB PO SCH (09:00)
--- NOTE | 2023-07-10 08:38 | Discharge Summary ---
Date of Service July 10, 2023 Discharge Data Procedures Performed Operation Date: 06/27/23 08:50 Actual Procedures p Left Total Knee Arthroplasty(Left) - Kirit Arteaga MD Hospital Course (1) Status post left knee replacement: This is a 58 year old patient admitted on 06/27/23 and underwent total knee arthroplasty. She tolerated the procedure well and there were no complications. Transferred to the PACU post op and later to the orthopedic floor for further care. She was given ancef for antibiotic prophylaxis. She was also given ULI stockings, SCDs, and aspirin for DVT prophylaxis. Hemoglobin, hematocrit, and vital signs were monitored during her hospital stay and remained stable. Did not require any blood transfusions. There were no complications during her hospital stay. By post op day #1 the patient was tolerating a diabetic diet, pain was reasonably controlled with oral pain medicine, and she was participating in physical therapy. On post op day #1 the patient was discharged home. She was given printed discharge instructions including prescriptions for extra strength tylenol, aspirin, cefadroxil, ketorolac, zofran, oxycodone, and senokot. Continue physical therapy, weight bearing as tolerated. Continue LUI stockings. Follow up approximately 2 weeks post op or sooner if there are problems or concerns. Coding Level of Care Code None Diagnoses Status post left knee replacement Z96.652
== END 2023-06-28 10:32 | disposition home or self-care (01) ==
LOC: 3W 07:11 → ASU 07:11